=== PATIENT | male | born 1985 | race Caucasian/White ===

== ENCOUNTER → 2019-03-11 13:52 | Outpatient (BNVA) | payer BC, SELFPAY | PROVIDERS: PCP Urology; Visit Provider Urology | DX: N50.811 Right testicular pain (principal); N50.89 Other specified disorders of the male genital organs; N99.89 Other postprocedural complications and disorders of genitourinary system | CPT/HCPCS: 81001 ==

== ENCOUNTER → 2020-08-10 11:06 | Outpatient (BNVA) | payer BC, SELFPAY | PROVIDERS: PCP Urology; Visit Provider Internal Medicine | DX: Z01.812 Encounter for preprocedural laboratory examination (principal); K92.1 Melena | CPT/HCPCS: 87635 ==

== ENCOUNTER 2020-08-14 08:11 | Day surgery (SDC) | payer BC, SELFPAY ==
[2020-08-10 13:06] VITALS: BMI 31.1
--- NOTE | 2020-08-14 08:25 | ANES.PREANE2 ---
Pre-Anesthetic Assessment Pre-Anesthetic Assessment: Height/Weight: Height 1.83 m Weight 104.326 kg Preop Diagnosis: hematochezia Proposed Procedure: Operation Date: 08/14/20 09:30 Proposed Procedures p Colonoscopy 43255 k92.1(Not Applicable) - Fish Watts MD Familial anesthetic complications: none Was Beta Kamaljit taken within 24 hours: N/A Was Clonidine taken within 24 hours: N/A Last intake: > 8 hrs Social: Social History: No alcohol and No tobacco Exam: Pre-Anes Outpt Exam: alert, oriented x 3, clear to auscultation bilaterally and regular rate & rhythm Airway: Cervical ROM: WNL MP: 3 Dentition: Full Additional comments: Full flannery Anesthetic Plan: ASA status: 2 Anesthesia: MAC Risk of > 500 ml blood loss (7ml/kg in children): No PFSH Anesthesia PFSH: Surgical History History of excision of mass JAW Status post vasectomy Family History Mother No problems noted. Father No problems noted. Social History Smoking and tobacco status: heavy tobacco smoker smokeless tobacco Marital status: Current occupational status: employed Data Anesthesia Cardiac Studies: No Data to Display
[2020-08-14 08:53] VITALS: BP 156/101; PULSE 104; RESP 18; TEMP 36.9; O2SAT 96
[2020-08-14] MEDS: sodium chloride 0.9% 1,000 ML 30 ML IV (09:12)
--- NOTE | 2020-08-14 09:39 | P.HP_ITS ---
Same Day Surgery H&P Indication for Procedure/HPI DATE OF PROCEDURE: August 14, 2020 CHIEF COMPLAINT/INDICATIONFOR SURGICAL PROCEDURE: Hematochezia PREOP DIAGNOSIS: Bleeding PLANNED PROCEDRUE: Operation Date: 08/14/20 09:30 Proposed Procedures p Colonoscopy 01362 k92.1(Not Applicable) - Fish Watts MD Medications/Allergies* Home Medications Medication Instructions Recorded Confirmed Type methadone 40 mg soluble tablet 40 mg PO .1 1/2 tablet daily tab 03/11/19 08/14/20 History multivitamin 1 cap PO QDAY cap 03/11/19 08/14/20 History testosterone cypionate 200 mg/mL See Rx Instructions .ROUTE .COMPLEX 03/11/19 08/14/20 History intramuscular oil minoxidil 5 % topical foam 1 ea TOPICAL DAILY g 08/01/20 08/14/20 History finasteride 5 mg PO DAILY 08/10/20 08/14/20 History Allergies/Adverse Reactions Allergy/AdvReac Type Severity Reaction Status Date / Time doxycycline Allergy rash Verified 08/14/20 08:45 Penicillins Allergy Unknown Verified 08/14/20 08:45 Current Medications: Generic Name Dose Route Start Last Admin Trade Name Freq PRN Reason Stop Dose Admin Sodium Chloride 1,000 mls @ 30 mls/hr 08/14/20 08:45 08/14/20 09:12 Sodium Chloride 0.9% IV 30 mls/hr .Q24H IRENA Administration Pertinent History/Comorbid Conditions* Surgical History (Updated 03/11/19 @ 13:29 by Dante Rowland MD) History of excision of mass JAW Status post vasectomy Social History Smoking and tobacco status: heavy tobacco smoker smokeless tobacco Marital status: Current occupational status: employed Pertinent Exam Findings alert, oriented x 3, clear to auscultation bilaterally, regular rate & rhythm, operative site marked and procedure specific exam findings Recommendations Surgery/Procedure today Coding Level of Care Code Acute Interactive Graphic Designer for Melissa Rubio
[2020-08-14 11:28] VITALS: BP 110/76; PULSE 87; RESP 18; TEMP 36.2; O2SAT 97
[2020-08-14 11:43] VITALS: BP 123/86; PULSE 85; RESP 18; TEMP 36.6; O2SAT 94
--- NOTE | 2020-08-14 15:48 | ANE.PACU2 ---
Inpatient post-anesthesia follow up: Airway intact: Yes Vital signs: Temperature 97.9 F Pulse Rate 85 Respiratory Rate 18 Blood Pressure 123/86 Pulse Oximetry 94 Oxygen Delivery Me thod Room Air Oxygen Flow Rate Fraction of Inspir ed Oxygen Hydration adequate: Yes Nausea and vomiting: No Pain level: 1 Mental status: Baseline
== END 2020-08-14 12:00 | disposition home or self-care (01) ==
PROVIDERS: PCP Urology; Visit Provider Internal Medicine
PROC: 0DJD8ZZ Inspection of Lower Intestinal Tract, Via Natural or Artificial Opening Endoscopic (ICD-10-PCS; CPT 45378; principal; 2020-08-14 09:30)
DX: K92.1 Melena (principal); F17.290 Nicotine dependence, other tobacco product, uncomplicated
CPT/HCPCS: 45378; 96360; 96361; J2704; J7030

== ENCOUNTER 2022-05-19 14:15 | Emergency (ER) | payer BC, SELFPAY ==
[2022-05-19 14:39] VITALS: BP 151/83; PULSE 107; TEMP 36.6; O2SAT 97; BMI 31.1
--- NOTE | 2022-05-19 14:53 | XRR_ITS ---
PROCEDURE INFORMATION: Exam: XR Left Finger(s) Exam date and time: 05/19/2022 3:07 PM Age: 37 years old Clinical indication: Injury or trauma; Other: Laceration by saw; Finger; Left; Thumb; Additional info: Chainsaw vs thumb TECHNIQUE: Imaging protocol: Radiologic exam of the left fingers. Views: Minimum 2 views. COMPARISON: No relevant prior studies available. FINDINGS: Bones/joints: Exam was performed of the left thumb. No fracture or dislocation is seen. Osseous structures and joint spaces show no significant abnormality. No cortical bone destruction. Soft tissues: Soft tissue swelling with soft tissue injury. No radiopaque soft tissue foreign body. XR/XR finger LT min 2V [id number] IMPRESSION: Soft tissue swelling and injury, without fracture or acute osseous abnormality.
--- NOTE | 2022-05-19 14:57 | ED_ITS ---
HPI - Trauma General: Chief Complaint: Trauma Stated Complaint: thumb lac, left hand Time Seen by Provider: 05/19/22 14:48 History of Present Illness: This pateint is a 37 year old presenting with an injury to the left thumb. He was cutting a small limb last night at about 11 pm while having a bonfire with his family - and slipped, cutting his thumb. He rinsed it out with water, but doesn't think he washed it out very well due to the pain. The pain is worse today so he came in. Tetanus is up to date. He is otherwise healthy. No diabetes. PFS ED PFSH: Surgical History History of excision of mass JAW Status post vasectomy Family History Mother No problems noted. Father No problems noted. Social History Smoking and tobacco status: former smoker Marital status: Current occupational status: employed Physical Exam Const: COMMON NORMALS: no acute distress, patient oriented x3, no limitations and alert GENERAL APPEARANCE: cooperative and comfortable Resp: COMMON NORMALS: normal respiratory effort and No use of accessory muscles Cardio: OTHER: normal perfusion Extremity: NARRATIVE EXTREMITY EXAM: left thumb with laceration/avulsion to the ulnar aspect of the distal phalanx - approx 1.2 cm in length, with the proximal 9 mm being an avulsion of skin and subcutaneous tissue. There is clot in the wound. Some swelling and severe tenderness. Neuro: COMMON NORMALS: patient oriented x3, moves all extremities, no focal motor deficits and no sensory deficits noted SENSORIUM/ORIENTATION: Yes alert Psych: COMMON NORMALS: mental status grossly normal, cooperative and normal affect Procedures Nerve Block Nerve Block 1: Local Anesthetic: lidocaine 1% Amount of anesthesia used (mL): 2 Side: left Nerve Blocks: digital Procedure Successful: Yes Patient Tolerated Procedure: well Complications: none Additional Comments: Wound cleaned with hibiclens, saline - no sutures placed due to avulsed tissue Course Vital Signs: Vital signs: Vital Signs Temperature 97.9 F 05/19/22 14:39 Pulse Rate 113 H 05/19/22 15:17 Respiratory Rate 18 05/19/22 15:13 Blood Pressure 135/96 05/19/22 15:17 Pulse Oximetry 96 05/19/22 15:17 Oxygen Delivery Me thod 05/19/22 15:17 MDM - Trauma Medical Decision Making Avulsion of tissue - will not be able to suture due to the missing skin. Also delay in presentation - injury was 16 hours ago and is on a distal extremity. Will get an xray to see if there is bone involvement, clean, dress and allow healing by secondary intention. Patient requesting a digital block for pain prior to cleaning the wound. I will also give pain medicine here and for home. Antibiotic for home. Lab Data Radiology Impressions Finger X-Ray 05/19/22 14:53 IMPRESSION: Soft tissue swelling and injury, without fracture or acute osseous abnormality. Discharge Plan Discharge Patient Disposition: Home Clinical Impression: Soft tissue avulsion, Contact with chainsaw as cause of accidental injury Condition: Stable Prescriptions: New Bactrim DS 800-160 mg tablet 1 tab PO BID 5 Days Qty: 10 0RF oxycodone-acetaminophen 5-325 mg tablet 1 tab PO Q4H PRN (Reason: pain) Qty: 10 0RF No Action methadone 40 mg tablet,soluble 40 mg PO .1 1/2 tablet daily Label Comments: pt states that he takes 120 mg/day testosterone cypionate [Depo-Testosterone] 200 mg/mL oil See Rx Instructions .ROUTE .COMPLEX Rx Instructions: 200 mg intramuscularly weekly multivitamin Capsule 1 cap PO QDAY minoxidil [Rogaine] 5 % foam 1 ea topical DAILY finasteride 5 mg tablet 5 mg PO DAILY Label Comments: pt states that he takes half tab about every other day Discharge Orders: Discharge ED (Routine); Ordered 05/19/22 Ordered By: Pattie Urbina Referrals: Mello Bradley MD [Primary Care Provider] - Discharge Diet: Advance as tolerated Discharge Activity: Limit activity as instructed Patient Instructions: Opioid Safety, Pain Management, Wound Care (General) Activity Restrictions/Additional Instructions: Limit use of left hand and thumb. Keep covered, clean and dry when active. Return to the ED if signs of infection including fever, thick yellow drainage, swelling and redness. Coding Level of Care Code ED Voyage Management System Operator for Melissa Rubio
[2022-05-19 15:13] VITALS: RESP 18
[2022-05-19] MEDS: oxyCODONE-APAP 5-325 mg Tablet 2 TAB PO (15:13)
[2022-05-19 15:17] VITALS: BP 135/96; PULSE 113; O2SAT 96
[2022-05-19] MEDS: lidocaine 1% INJ 10 mL (per mL) INJECTION (16:00)
== END 2022-05-19 16:45 | disposition home or self-care (01) ==
PROVIDERS: Emergency Provider Emergency Medicine; PCP Family Medicine
DX: S61.002A Unspecified open wound of left thumb without damage to nail, initial encounter (principal); W27.0XXA Contact with workbench tool, initial encounter; Z87.891 Personal history of nicotine dependence
CPT/HCPCS: 64450; 73140; 99283; A6260

== ENCOUNTER 2024-10-10 10:54 | Emergency (ER) | payer OTHER, SELFPAY ==
--- OUTSIDE RECORDS SUMMARY | 2024-10-10 11:01 | XMS_ITS | Patient Health Record ---
Author Organization [facility] Address [address] [place] [address] Care Team Providers Care Copyright Expert Name Role Phone Kylee PATIENT RELATIONS DIRECTOR, Jody Primary Care Provider Delaney Batista NP, Oksana Unavailable Unavailable Allergies Allergen (clinical drug ingredient) Drug/Non Drug Allergy documented on EMR Reaction Allergy Type Onset Date Status Penicillin Unknown Drug Allergy Active Reason For Referral No Information Medications Medication SIG (Take, Route, Frequency, Duration) Notes Start Date End Date Status Magnesium Sulfate 1 tab Oral A ctive Testosterone Cypionate 100 MG/ML 1 ml Intramuscular Active B Complex Orally Active MiraLax 17g as directed Orally o nce daily; Duration: 30 days 09/16/2014 Active Probiotic Orally Active Multivitamins Orally Active NexIUM 40 MG 1 capsule Orally Onc e a day Active Methadone HCl 70 1 tablet Orally Once a day Active Co Q 10 10 MG 1 capsule with a pam l Orally Once a day Active Problems Problem Type SNOMED Code ICD Code Onset Dates Problem Status W/U Status Risk Notes Problem 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
[2024-10-10 11:03] VITALS: BP 137/80; PULSE 121; RESP 16; O2SAT 100
--- NOTE | 2024-10-10 11:11 | XRR_ITS ---
PROCEDURE INFORMATION: Exam: XR Right Hip Exam date and time: 10/10/2024 11:15 AM Age: 39 years old Clinical indication: Hip pain; Right hip TECHNIQUE: Imaging protocol: Radiologic exam of the right hip. Views: 1 view hip with pelvis when performed. COMPARISON: No relevant prior studies available. FINDINGS: Bones/joints: No acute fracture or malalignment. No worrisome lytic or blastic osseous lesion. Bone island projects over the proximal left femoral neck. No appreciable cortical erosion or periosteal reaction. Joint spaces are preserved. Soft tissues: Bilateral mastectomy. No other appreciable radiopaque foreign body or gas. XR/XR hip RT 2-3V wo/w pel* [id number] IMPRESSION: No acute fracture or malaligment.
--- NOTE | 2024-10-10 11:12 | W.ED.EXTPRO ---
HPI - Extremity Problem General: Chief complaint: Extremity Injury, Lower Stated complaint: inner theigh pain Time Seen by Provider: 10/10/24 11:08 Source: patient Mode of arrival: ambulatory Limitations: no limitations History of Present Illness: 39-year-old male states has been having right hip pain is been going on since Friday. States he states the pain is deep in his posterior right hip states its improved with standing he denies any specific injuries. States pain sharp in nature rates it an 8 out of 10 has had a history of sciatica before but denies any radiation of pain he has taken some steroids at home along with Naprosyn with minimal relief Associated symptoms: Deny chest pain, fever(s) or rash Related Data Home Medications ?Medication ?Instructions ?Recorded ?Confirmed methadone 40 mg soluble tablet 40 mg PO .1 1/2 tablet daily 03/11/19 09/19/20 multivitamin 1 cap PO QDAY 03/11/19 09/19/20 testosterone cypionate 200 mg/mL See Rx Instructions .Route .COMPLEX 03/11/19 09/19/20 intramuscular oil (Depo-Testosterone) minoxidil 5 % topical foam 1 ea topical DAILY 08/01/20 09/19/20 (Rogaine) finasteride 5 mg tablet 5 mg PO DAILY 08/10/20 09/19/20 Previous Rx's ?Medication ?Instructions ?Recorded oxycodone-acetaminophen 5 mg-325 1 tab PO Q4H PRN pain #10 tabs 05/19/22 mg tablet methocarbamol 750 mg tablet 750 mg PO Q6H PRN spasms #20 tabs 10/10/24 prednisone 50 mg tablet 50 mg PO DAILY #5 tabs 10/10/24 Allergies Allergy/AdvReac Type Severity Reaction Status Date / Time doxycycline Allergy rash Verified 09/19/20 15:19 Penicillins Allergy Unknown Verified 09/19/20 15:19 Review of Systems Const: Denies: fever(s), chills, body aches or change in appetite ENMT: Denies: throat pain or dental pain Card: Denies: chest pain Resp: Denies: dyspnea GI: Denies: abdominal pain, nausea, vomiting or diarrhea Musc: Reports: extremity pain; Denies: neck pain or back pain Skin/Breast: Denies: rash Neuro: Denies: headache(s) PFSH ED PFSH: Surgical History History of excision of mass JAW Status post vasectomy Family History Mother No problems noted. Father No problems noted. Social History Smoking and tobacco/nicotine status: former use of tobacco/nicotine Marital status: Current occupational status: employed Physical Exam Const: COMMON NORMALS: no acute distress, patient oriented x3 and healthy appearing HENMT: COMMON NORMALS: normocephalic and atraumatic HEAD & SCALP: normocephalic and atraumatic Eye: COMMON NORMALS: conjunctivae normal CONJUNCTIVA: Yes conjunctivae normal Neck/C-Spine: COMMON NORMALS: full ROM and supple Chest: COMMONS NORMALS: normal inspection of the chest Resp: COMMON NORMALS: normal respiratory effort Cardio: RATE: tachycardic GI: COMMON NORMALS: Normal to inspection, nondistended, normoactive bowel sounds present, Soft to palpation, non-tender and no masses PALPATION: Yes Soft to palpation : COMMON NORMALS: Yes no CVA tenderness BLADDER/KIDNEY EXAM: Yes no CVA tenderness Back/Pelvis: COMMON NORMALS: no CVA tenderness Extremity: NARRATIVE EXTREMITY EXAM: Tenderness noticed in right hip posterior distal pulses sensation intact Neuro: COMMON NORMALS: patient oriented x3, moves all extremities and no focal motor deficits Psych: COMMON NORMALS: mental status grossly normal, Normal thought process present and cooperative THOUGHT PROCESS: Normal thought process present Skin: COMMON NORMALS: no rashes or lesions noted and no wounds GENERAL SKIN EXAM: no rashes or lesions noted Course Vital Signs: Vital signs: Vital Signs Pulse Rate 98 10/10/24 11:33 Respiratory Rate 20 H 10/10/24 11:33 Blood Pressure 128/79 10/10/24 11:33 Pulse Oximetry 96 10/10/24 11:33 Oxygen Delivery Me thod Room Air 10/10/24 11:33 MDM - Extremity (Nontraumatic) Medical Decision Making Patient presents here with hip pain is likely muscular in nature blood work urine is normal x-ray showed no fracture we will place him on prednisone along with Naprosyn he is to follow-up with his PCP return if worsening. Medical Records I reviewed the patient's medical records. Lab Data I reviewed the patient's lab results. 10/10/24 11:28 10/10/24 11:28 Radiology Impressions Hip/Pelvis X-Ray 10/10/24 11:11 IMPRESSION: No acute fracture or malaligment. Laboratory Results WBC 7.64 10^3/uL (3.29-11.43) 10/10/24 11:28 RBC 5.23 10^6/uL (3.85-5.65) 10/10/24 11:28 Hgb 16.00 g/dL (11.27-16.99) 10/10/24 11:28 Hct 48.2 % (37-53) 10/10/24 11:28 MCV 92.2 fl (82-101) 10/10/24 11:28 MCH 30.6 pg (27-33) 10/10/24 11:28 MCHC 33.2 g/dL (30-55) 10/10/24 11:28 RDW 13.4 % (12.1-15.1) 10/10/24 11:28 Plt Count 234 10^3/cmm (157-399) 10/10/24 11:28 MPV 9.5 fL (7.4-10.4) 10/10/24 11:28 Neut % (Auto) 57.8 % 10/10/24 11:28 Lymph % (Auto) 29.5 % 10/10/24 11:28 [place] % (Auto) 8.6 % 10/10/24 11:28 Eos % (Auto) 1.4 % 10/10/24 11:28 Baso % (Auto) 0.7 % 10/10/24 11:28 Neut # (Auto) 4.42 10^3/uL (1.8-7.7) 10/10/24 11:28 Lymph # (Auto) 2.3 10^3/uL (0.8-4.8) 10/10/24 11:28 [place] # (Auto) 0.7 10^3/uL (0.2-0.9) 10/10/24 11:28 Eos # (Auto) 0.1 10^3/uL (0.0-0.8) 10/10/24 11:28 Baso # (Auto) 0.1 10^3/uL (0.0-0.1) 10/10/24 11:28 Nucleated RBC % (auto) 0 % 10/10/24 11:28 Nucleated RBCs # 0.0 /100WBC 10/10/24 11:28 Sodium 141 mmol/L (136-145) 10/10/24 11:28 Potassium 3.5 mmol/L (3.5-5.1) 10/10/24 11:28 Chloride 105 mmol/L (98-107) 10/10/24 11:28 Carbon Dioxide 26 mmol/L (22-29) 10/10/24 11:28 Anion Gap 13.5 (5-19) 10/10/24 11:28 BUN 15 mg/dL (6-20) 10/10/24 11:28 Creatinine 1.0 mg/dL (0.7-1.2) 10/10/24 11:28 GFR Calculation 83.2 mL/min (90-130) L 10/10/24 11:28 Glucose 106 mg/dL (65-115) 10/10/24 11:28 Calculated Osmolality 293 mOsm/kg (285-295) 10/10/24 11:28 Calcium 9.2 mg/dL (8.5-10.5) 10/10/24 11:28 Total Bilirubin 0.2 mg/dL (0.15-1.2) 10/10/24 11:28 AST 14 U/L (0-40) 10/10/24 11:28 ALT 26 U/L (0-41) 10/10/24 11:28 Alkaline Phosphatase 53 U/L (40-130) 10/10/24 11:28 Total Protein 6.6 g/dL (6.6-8.7) 10/10/24 11:28 Albumin 4.1 g/dL (3.5-5.2) 10/10/24 11:28 Globulin 2.5 g/dL (1.3-4.6) 10/10/24 11:28 Urine Color Yellow (Yellow) 10/10/24 11:54 Urine Appearance Clear (CLEAR) 10/10/24 11:54 Urine pH 6.0 (5-7) 10/10/24 11:54 Ur Specific [place] 1.016 (1.005-1.030) 10/10/24 11:54 Urine Protein Negative (Negative) 10/10/24 11:54 Urine Glucose (UA) Negative (Normal) 10/10/24 11:54 Urine Ketones Negative (Negative) 10/10/24 11:54 Urine Blood Negative (Negative) 10/10/24 11:54 Urine Nitrate Negative (Negative) 10/10/24 11:54 Urine Bilirubin Negative (Negative) 10/10/24 11:54 Urine Urobilinogen 1.0 mg/dL (Negative) 10/10/24 11:54 Ur Leukocyte Esterase Negative (Negative) 10/10/24 11:54 Amorphous Sediment Not Reportable 10/10/24 11:54 All radiology interpretation(s) finalized by discharge Discharge Plan Discharge Patient Disposition: Home Clinical Impression: Hip pain Condition: Stable Prescriptions: New methocarbamol 750 mg tablet 750 mg PO Q6H PRN (Reason: spasms) Qty: 20 0RF prednisone 50 mg tablet 50 mg PO DAILY Qty: 5 0RF No Action methadone 40 mg tablet,soluble 40 mg PO .1 1/2 tablet daily Patient Comments: pt states that he takes 120 mg/day testosterone cypionate [Depo-Testosterone] 200 mg/mL oil See Rx Instructions .ROUTE .COMPLEX Rx Instructions: 200 mg intramuscularly weekly multivitamin Capsule 1 cap PO QDAY minoxidil [Rogaine] 5 % foam 1 ea topical DAILY finasteride 5 mg tablet 5 mg PO DAILY Patient Comments: pt states that he takes half tab about every other day oxycodone-acetaminophen 5-325 mg tablet 1 tab PO Q4H PRN (Reason: pain) Qty: 10 0RF Discharge Orders: Discharge ED (Routine); Ordered 10/10/24 Ordered By: Philipp Munguia Referrals: Mello Bradley MD [Primary Care Provider, Family Practice] Discharge Diet: Advance as tolerated Discharge Activity: Resume usual activity Patient Instructions: Hip Pain (ED) Print Language: Bulgarian Coding Level of Care Code ED Rolling Up Machine Operator for Melissa Rubio
[2024-10-10 11:31] VITALS: RESP 20; O2SAT 97
[2024-10-10] MEDS: morphine 4 mg/mL SDV 1 mL IVP (11:31)
[2024-10-10 11:33] VITALS: BP 128/79; PULSE 98; RESP 20; O2SAT 96
[2024-10-10 11:35] LABS: Hematocrit 48.2 % (37-53); Hemoglobin 16.00 g/dL (11.27-16.99); Mean Corpuscular HGB Conc 33.2 g/dL (30-55); Mean Corpuscular Hemoglobin 30.6 pg (27-33); Mean Corpuscular Volume 92.2 fl (82-101); Nucleated Red Blood Cells % 0 %; Platelet Count 234 10^3/cmm (157-399); Red Blood Count 5.23 10^6/uL (3.85-5.65); White Blood Count 7.64 10^3/uL (3.29-11.43)
[2024-10-10 11:51] LABS: Alanine Aminotransferase 26 U/L (0-41); Albumin Level 4.1 g/dL (3.5-5.2); Alkaline Phosphatase 53 U/L (40-130); Anion Gap 13.5 (5-19); Aspartate Amino Transferase 14 U/L (0-40); Blood Urea Nitrogen 15 mg/dL (6-20); Calcium 9.2 mg/dL (8.5-10.5); Carbon Dioxide 26 mmol/L (22-29); Chloride 105 mmol/L (98-107); Creatinine Clr Calc Pharmacy 123.8518; Globulin 2.5 g/dL (1.3-4.6); Glucose 106 mg/dL (65-115); Osmolality Calculated 293 mOsm/kg (285-295); Potassium 3.5 mmol/L (3.5-5.1); Sodium 141 mmol/L (136-145); Total Protein 6.6 g/dL (6.6-8.7)
[2024-10-10 12:11] LABS: Add Urine Microscopic? NO
[2024-10-10 12:15] LABS: Glucose Urine UA Negative (Normal); Nitrate Urine Negative (Negative); Specific Gravity, Urine 1.016 (1.005-1.030)
[2024-10-10 12:22] LABS: Charge for UA Resulting for Rev
[2024-10-10 12:42] VITALS: BP 128/79; PULSE 91; O2SAT 96
== END 2024-10-10 12:43 | disposition home or self-care (01) ==
PROVIDERS: Emergency Provider Emergency Medicine; PCP Family Medicine
DX: M25.551 Pain in right hip (principal); Z87.891 Personal history of nicotine dependence
CPT/HCPCS: 36415; 73502; 80053; 81003; 85025; 96374; 96375; 99284; J1100; J1885; J2270; J9999